=== PATIENT | female | born 1940 | race Caucasian/White ===

== ENCOUNTER → 2017-05-06 | Outpatient (CLI) | payer MEDICARE | END | disposition home or self-care (01) | LOC: SHCH 13:13 | PROVIDERS: ATTEND Internal Medicine Cardiovascular Disease | DX: I48.1 Persistent atrial fibrillation (principal) | CPT/HCPCS: 93306 ==

== ENCOUNTER → 2017-05-12 | Outpatient (CLI) | payer MEDICARE | END | disposition home or self-care (01) | LOC: SLP 20:36 | PROVIDERS: ATTEND Internal Medicine Cardiovascular Disease | DX: G47.30 Sleep apnea, unspecified (principal) | CPT/HCPCS: 95810 ==

== ENCOUNTER → 2017-05-26 | Outpatient (CLI) | payer MEDICARE | LOC: SLP 20:37 | PROVIDERS: ATTEND Internal Medicine Cardiovascular Disease | DX: G47.33 Obstructive sleep apnea (adult) (pediatric) (principal); G47.61 Periodic limb movement disorder; F23 Brief psychotic disorder; E66.2 Morbid (severe) obesity with alveolar hypoventilation; R09.02 Hypoxemia | CPT/HCPCS: 95811 ==

== ENCOUNTER → 2018-10-04 | Outpatient (CLI) | payer MEDICARE | END | disposition home or self-care (01) | LOC: OIH 13:34 | PROVIDERS: ATTEND Internal Medicine Cardiovascular Disease | DX: G47.33 Obstructive sleep apnea (adult) (pediatric) (principal); I51.7 Cardiomegaly | CPT/HCPCS: 71046 ==

== ENCOUNTER → 2021-08-06 | Outpatient (CLI) | payer OTHER | END | disposition home or self-care (01) | LOC: SHCH 14:28 | PROVIDERS: ATTEND Internal Medicine Cardiovascular Disease | DX: I34.0 Nonrheumatic mitral (valve) insufficiency (principal); I10 Essential (primary) hypertension; I67.9 Cerebrovascular disease, unspecified | CPT/HCPCS: 93306 ==